=== PATIENT | female | born 1980 | race Caucasian/White ===

== ENCOUNTER 2018-01-15 09:40 | Day surgery (SDC) | payer BC ==
[~2018-01-15] VITALS: Ht 170.2 cm; Wt 103.0 kg
[~2018-01-15 09:40] MED LIST: CIPRO500 MG PO; FLOMAX0.4 MG PO; NEXIUM 24HR20 M2 PO; SEASONIQUE 01 TABLET PO; TOPAMAX25 MG PO; VICODIN 5-3001 EACH PO; ZOFRAN8 MG PO
[2018-01-15 10:23] VITALS: BP 114/74
[2018-01-15 13:10] VITALS: BP 115/65
[2018-01-15 14:00] VITALS: BP 122/69
== END 2018-01-15 14:00 | disposition home or self-care (01) ==
LOC: SDC 09:40
PROVIDERS: Urology
PROC: 0TF78ZZ Fragmentation in Left Ureter, Via Natural or Artificial Opening Endoscopic (ICD-10-PCS; principal; 2018-01-15)
PROC: 0T778DZ Dilation of Left Ureter with Intraluminal Device, Via Natural or Artificial Opening Endoscopic (ICD-10-PCS; principal; 2018-01-15)
DX: N20.2 Calculus of kidney with calculus of ureter (principal); K21.9 Gastro-esophageal reflux disease without esophagitis; Z88.0 Allergy status to penicillin
CPT/HCPCS: 74018; 76000; 81025; C2625; J1100; J1170; J1885; J2250; J2405; J2710; J3010; J7643